=== PATIENT | female | born 1970 | race American Indian/Alaskan Native ===

== ENCOUNTER 2018-11-06 12:32 | Emergency (ER) | payer BC ==
[2018-11-06 12:35] VITALS: BMI 39.9
[2018-11-06 12:38] VITALS: RESP 18; O2SAT 98
[2018-11-06] MEDS ORDERED: Sodium Chloride 0.9% 1,000 ML IV ONE (13:44)
[2018-11-06] MEDS ORDERED: Sodium Chloride 0.9% 1,000 ML ONE (14:03)
[2018-11-06] MEDS ORDERED: Iodixanol 320 MG/ML 100 ML BOTTLE IV ONE (14:09)
[2018-11-06 14:39] LABS: BASO # 0.1 K/uL (0.0-0.2); BASO % 1.3 % (0.0-2.0); EOS # 0.1 K/uL (0.0-0.7); EOS % 1.1 % (0.0-4.0); HEMOGLOBIN 11.1 g/dL (11.0-16.0); LYMPH # 1.6 K/uL (1.0-4.3); LYMPH % 32.8 % (20.0-40.0); MEAN CELL VOLUME 80.6 fL (81.0-99.0); MEAN CORPUSCULAR HEMOGLOBIN 26.3 pg (27.0-31.0); MEAN CORPUSCULAR HGB CONC 32.7 g/dL (33.0-37.0); MEAN PLATELET VOLUME 8.8 fL (7.2-11.7); MONO # 0.3 K/uL (0.0-0.8); MONO % 6.5 % (0.0-10.0); NEUT # 2.8 K/uL (1.8-7.0); NEUT % 58.3 % (50.0-75.0); RBC 4.2 Mil/uL (3.80-5.20); RED CELL DISTRIBUTION WIDTH 13.9 % (11.5-14.5); WHITE BLOOD COUNT 4.9 K/uL (4.8-10.8)
[2018-11-06 14:42] LABS: HCG,QUALITATIVE URINE NEGATIVE (NEGATIVE)
[2018-11-06 14:48] LABS: SQUAMOUS EPITHIAL 3 /hpf (0-5); URINE BILIRUBIN NEGATIVE (NEGATIVE); URINE BLOOD NEGATIVE (NEGATIVE); URINE CLARITY Hazy (Clear); URINE COLOR Yellow (YELLOW); URINE GLUCOSE (UA) NORMAL (Normal); URINE LEUKOCYTE ESTERASE NEG Leu/uL (Negative); URINE PROTEIN NEGATIVE (NEGATIVE); URINE UROBILINOGEN NORMAL mg/dL (0.2-1.0)
[2018-11-06 14:50] LABS: ALB/GLOB RATIO 1.3 (1.0-2.1); ALBUMIN 4.2 g/dL (3.5-5.0); ALT/SGPT 22 U/L (9-52); AST/SGOT 28 U/L (14-36); BLOOD UREA NITROGEN 7 mg/dL (7-17); CALCIUM 9.4 mg/dl (8.6-10.4); GFR NON-AFRICAN AMERICAN > 60; LIPASE 85 U/L (23-300)
--- NOTE | 2018-11-06 15:29 | C.PDOC ---
History Of Present Illness 48 y/o female, with history of gastritis, presents to ED complaining of upper abdominal pain, associated with nausea but no vomiting. Patient was seen by her PMD and started on medication. States that the pain feels more intense since yesterday. Patient denies fever, diarrhea, back pain, or urinary symptoms. Time Seen by Provider: 11/06/18 12:42 Chief Complaint (Nursing): Dizziness/Lightheaded History Per: Patient History/Exam Limitations: no limitations Onset/Duration Of Symptoms: Days Current Symptoms Are (Timing): Still Present Past Medical History Reviewed: Historical Data, Nursing Documentation, Vital Signs Vital Signs: Last Vital Signs Temp 98.2 F 11/06/18 12:34 Pulse 96 H 11/06/18 12:34 Resp 18 11/06/18 12:34 BP 133/76 11/06/18 12:34 Pulse Ox 98 11/06/18 12:34 - Medical History PMH: Anxiety, Asthma, TIA Surgical History: Family History: States: No Known Family Hx - Social History Hx Tobacco Use: No Hx Alcohol Use: No Hx Substance Use: No - Immunization History Hx Tetanus Toxoid Vaccination: No Hx Influenza Vaccination: No Hx Pneumococcal Vaccination: No Review Of Systems Except As Marked, All Systems Reviewed And Found Negative. Constitutional: Negative for: Fever, Chills Cardiovascular: Negative for: Chest Pain Respiratory: Negative for: Shortness of Breath Gastrointestinal: Positive for: Nausea, Abdominal Pain (upper). Negative for: Vomiting, Diarrhea Genitourinary: Negative for: Dysuria, Hematuria Musculoskeletal: Negative for: Back Pain Physical Exam - Physical Exam Appears: Non-toxic, No Acute Distress Skin: Warm, Dry Head: Atraumatic, Normacephalic Eye(s): bilateral: Normal Inspection Oral Mucosa: Moist Neck: Supple Cardiovascular: Rhythm Regular, No Murmur Respiratory: Normal Breath Sounds, No Rales, No Rhonchi, No Wheezing Gastrointestinal/Abdominal: Soft, Tenderness (diffuse upper abdominal tenderness), No Guarding, No Rebound Extremity: Bilateral: Atraumatic, Normal ROM Neurological/Psych: Oriented x3, Normal Speech ED Course And Treatment - Laboratory Results Result Diagrams: 11/06/18 14:32 11/06/18 14:32 Lab Results: Total Bilirubin 0.5 mg/dL (0.2-1.3) 11/06/18 14:32 AST 28 U/L (14-36) 11/06/18 14:32 ALT 22 U/L (9-52) 11/06/18 14:32 Alkaline Phosphatase 75 U/L (38-126) 11/06/18 14:32 Total Protein 7.4 g/dL (6.3-8.3) 11/06/18 14:32 Albumin 4.2 g/dL (3.5-5.0) 11/06/18 14:32 Globulin 3.2 gm/dL (2.2-3.9) 11/06/18 14:32 Albumin/Globulin Ratio 1.3 (1.0-2.1) 11/06/18 14:32 Lipase 85 U/L (23-300) 11/06/18 14:32 Urine Color Yellow (YELLOW) 11/06/18 14:32 Urine Clarity Hazy (Clear) 11/06/18 14:32 Urine pH 5.0 (5.0-8.0) 11/06/18 14:32 Ur Specific [place] 1.017 (1.003-1.030) 11/06/18 14:32 Urine Protein Negative mg/dL (NEGATIVE) 11/06/18 14:32 Urine Glucose (UA) Normal mg/dL (Normal) 11/06/18 14:32 Urine Ketones Negative mg/dL (NEGATIVE) 11/06/18 14:32 Urine Blood Negative (NEGATIVE) 11/06/18 14:32 Urine Nitrate Negative (NEGATIVE) 11/06/18 14:32 Urine Bilirubin Negative (NEGATIVE) 11/06/18 14:32 Urine Urobilinogen Normal mg/dL (0.2-1.0) 11/06/18 14:32 Ur Leukocyte Esterase Neg Yasmeen/uL (Negative) 11/06/18 14:32 Urine WBC (Auto) 2 /hpf (0-5) 11/06/18 14:32 Urine RBC (Auto) 1 /hpf (0-3) 11/06/18 14:32 Ur Squamous Epith Cells 3 /hpf (0-5) 11/06/18 14:32 Urine HCG, Qual Negative (NEGATIVE) 11/06/18 14:32 Urine HCG, Qual Negative (NEGATIVE) 11/06/18 14:32 O2 Sat by Pulse Oximetry: 98 (RA) Pulse Ox Interpretation: Normal - CT Scan/US abd/pel CT Other Rad Studies (CT/US): Read By Radiologist, Radiology Report Reviewed CT/US Interpretation: FINDINGS: Lung bases are clear. No pleural or pericardial effusion. Mild fatty infiltration of the liver. Hyperdense material seen within the dependent portion of the gallbladder which may represent cholelithiasis. Splenule. Spleen is preserved. Adrenal glands are preserved. Pancreas is preserved. Upper abdominal bowel is preserved. Small fat containing midline umbilical hernia. Right kidney: No calculi or hydronephrosis. Vague low attenuation in the upper pole of the right kidney may be related to artifact as demonstrated on series 3, image 35. Clinical correlation. Left Kidney: No calculi or hydronephrosis. Underdistended urinary bladder. Heterogeneous uterus and endometrium. Fecal retention in the colon. Appendix is within normal limits. Few shotty para-aortic and inguinal lymph nodes. Degenerative changes in the spine. Sclerosis of the bilateral SI joints. Impression: 1. Hyperdense material seen within the dependent portion o f the gallbladder which may represent cholelithiasis. 2. Mild fatty infiltration of the liver. 3. Vague low attenuation in the upper pole of the right kidney may be related to artifact as demonstrated on series 3, image 35. Clinical correlation. 4. Underdistended urinary bladder. Medical Decision Making Medical Decision Making: Plan: --Abd/Pel CT --Labs --IV fluids --Toradol 30 mg IVP --Zofran 4 mg IVP --Urine Culture --UA Disposition - Disposition Disposition: HOME/ ROUTINE Disposition Time: 17:00 Condition: STABLE Prescriptions: Polyethylene Glycol 3350 [Miralax] 17 g PO DAILY 4 Days ml Instructions: Gallstones (DC), Gastritis (ED) Forms: [employer] (Serbian) - POA Present On Arrival: None - Clinical Impression Clinical Impression: Biliary colic - Scribe Statement The provider has reviewed the documentation as recorded by the Betty Hays Provider Attestation: All medical record entries made by the Xaviibjovon were at my direction and personally dictated by me. I have reviewed the chart and agree that the record accurately reflects my personal performance of the history, physical exam, medical decision making, and the department course for this patient. I have also personally directed, reviewed, and agree with the discharge instructions and disposition.
--- NOTE | 2018-11-06 16:57 | CT ---
CT abdomen and pelvis HISTORY: Abdominal pain. COMPARISON: None available. TECHNIQUE: Multiple contiguous axial images were performed through the abdomen and pelvis with the use of intravenous contrast. Subsequently, sagittal and coronal reformatted images were obtained. This CT exam was performed using one or more of the following dose reduction techniques: Automated exposure control, adjustment of the mA and/or kV according to patient size, and/or use of iterative reconstruction technique. FINDINGS: Lung bases are clear. No pleural or pericardial effusion. Mild fatty infiltration of the liver. Hyperdense material seen within the dependent portion of the gallbladder which may represent cholelithiasis. Splenule. Spleen is preserved. Adrenal glands are preserved. Pancreas is preserved. Upper abdominal bowel is preserved. Small fat containing midline umbilical hernia. Right kidney: No calculi or hydronephrosis. Vague low attenuation in the upper pole of the right kidney may be related to artifact as demonstrated on series 3, image 35. Clinical correlation. Left Kidney: No calculi or hydronephrosis. Underdistended urinary bladder. Heterogeneous uterus and endometrium. Fecal retention in the colon. Appendix is within normal limits. Few shotty para-aortic and inguinal lymph nodes. Degenerative changes in the spine. Sclerosis of the bilateral SI joints. Impression: 1. Hyperdense material seen within the dependent portion of the gallbladder which may represent cholelithiasis. 2. Mild fatty infiltration of the liver. 3. Vague low attenuation in the upper pole of the right kidney may be related to artifact as demonstrated on series 3, image 35. Clinical correlation. 4. Underdistended urinary bladder.
[2018-11-06 17:17] VITALS: BP 106/71; PULSE 84; TEMP 98.8
== END 2018-11-06 17:17 | disposition home or self-care (01) ==
LOC: C.ER 12:32
DX: K80.50 Calculus of bile duct without cholangitis or cholecystitis without obstruction (principal); Z86.73 Personal history of transient ischemic attack (TIA), and cerebral infarction without residual deficits
CPT/HCPCS: 74177; 80053; 81001; 83690; 84703; 85025; 87086; 99285; J7030; Q9967